=== PATIENT | male | born 1945 | race Caucasian/White ===

== ENCOUNTER → 2020-11-16 | Outpatient (CLI) | payer MEDICARE ==
--- NOTE | 2020-11-16 15:48 | XR ---
EXAMINATION TYPE: XR chest 2V DATE OF EXAM: 11/16/2020 COMPARISON: None HISTORY: 74-year-old male I50.9, heart failure, shortness of breath, dyspnea. TECHNIQUE: Frontal and lateral views FINDINGS: Heart borderline enlarged. Strandy areas of atelectasis of the lower lungs. Aorta and pulmonary vascu lature within normal limits. No consolidation or pleural effusion. IMPRESSION: Borderline heart size. Strandy bibasilar atelectasis.
--- NOTE | 2020-11-17 07:38 | ECHOF ---
Referral Reason:I50.9 heart failure R06.00 Dyspnea R01.1 MEASUREMENTS -------- HEIGHT: 175.3 cm WEIGHT: 113.4 kg BP: IVSd: 1.3 cm (0.6 - 1.1) LVIDd: 5.1 cm (3.9 - 5.3) LVPWd: 1.2 cm (0.6 - 1.1) IVSs: 1.9 cm LVIDs: 2.6 cm LVPWs: 1.7 cm LAESV Index (A-L): 29.13 ml/m Ao Diam: 4.3 cm (2.0 - 3.7) AV Cusp: 2.3 cm (1.5 - 2.6) MV E Kishore: 0.57 m/s MV DecT: 214 ms MV A Kishore: 0.94 m/s MV E/A Ratio: 0.60 RAP: 5.00 mmHg RVSP: 14.60 mmHg FINDINGS -------- Sinus rhythm. This was a technically good study. The left ventricular size is normal. There is mild concentric left ventricular hypertrophy. Overa ll left ventricular systolic function is mildly impaired with, an EF between 45 - 50 %. Basal septa l hypokinesis The right ventricle is normal in size. LA is midly dilated 29-33ml/m2. The right atrial size is normal. There is mild aortic valve sclerosis. Trace amount of aortic regurgitation. Mild mitral regurgitation is present. Mild tricuspid regurgitation present. Right ventricular systolic pressure is normal at < 35 mmHg. There is no pulmonic regurgitation present. There is no pericardial effusion. CONCLUSIONS -------- 1. The left ventricular size is normal. 2. There is mild concentric left ventricular hypertrophy. 3. Basal septal hypokinesis 4. The right ventricle is normal in size. 5. LA is midly dilated 29-33ml/m2. 6. The right atrial size is normal. 7. There is mild aortic valve sclerosis. 8. Trace amount of aortic regurgitation. 9. Mild mitral regurgitation is present. 10. Mild tricuspid regurgitation present. 11. There is no pulmonic regurgitation present. AIR DRIER: Maru Singh RDCS
== END | disposition home or self-care (01) ==
LOC: RADECHMAIN 13:47
PROVIDERS: ATTEND Family Medicine
DX: J98.11 Atelectasis (principal); R06.00 Dyspnea, unspecified; I50.9 Heart failure, unspecified; R01.1 Cardiac murmur, unspecified
CPT/HCPCS: 71046; 93005; 93306

== ENCOUNTER → 2021-01-01 | Outpatient (CLI) | payer MEDICARE ==
[~2021-01-01] MED LIST: REGADENOSON 0.4 MG/5 ML SYRINGE IV PRN
--- NOTE | 2021-01-01 16:54 | P.STRESS ---
- Stress Test Note Stress Test Results/Findings: Exam Performed: NM stress lexiscan cardiolite Exam Date: 01/01/21 Reason for Exam: GURPREET Height: 5 ft 10 in Weight: 250 kg Protocol: MAXX Stage: NA Duration of Exercise: 4 MIN Resting Heart Rate: 85 Resting Blood Pressure: 147/87 Maximum Achieved Heart Rate: 107 Maximum Achieved Blood Pressure: 147/86 85% PMHR: 123 100% PMHR: 145 METS: NA Technologist Comment: Stress Test Results/Findings: This is a 75-year-old gentleman with history of hypertension, diabetes and smoking history, being evaluated for symptoms of shortness of breath. Stress data: Baseline EKG showed sinus rhythm. There is incomplete right bundle-branch block. A standard dose of Lexiscan was infused. Blood pressure at rest is 147/87, pulse rate of 85. With infusion. Heart rate went up to maximal 107 with a blood pressure 135/82. EKGs taken during and after the infusion did not reveal any changes from baseline. Final impression: #1. Negative Lexiscan stress test #2. Report on nuclear images to be provided by the radiologist
--- NOTE | 2021-01-01 18:47 | NM ---
EXAMINATION TYPE: NM stress lexiscan cardiolite DATE OF EXAM: 01/01/2021 COMPARISON: NONE HISTORY: 75-year-old male shortness of breath, difficulty breathing TECHNIQUE: After the intravenous administration of 10.1 mCi Tc 99m Sestamibi - Cardiolite resting SP ECT images acquired 50 minutes post injection. The patient received 0.4mg Lexiscan, 24.3 mCi Tc 99m Sestamibi - Stress images obtained [address] injection FINDINGS: Review of stress and rest SPECT images demonstrates a large lateral and inferolateral wall area of de creased perfusion which accentuates stress imaging. This is corroborated on polar maps. Gated analysi s shows limited augmentation of the lateral wall with an estimated left ventricular ejection fraction of 50 %. TID there is normal at 0.87. IMPRESSION: 1. 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 The defect accentuat es on stress suggesting shreya-infarct ischemia. Further workup as clinically indicated. 2. Mildly diminished LVEF of 50%.
== END | disposition home or self-care (01) ==
LOC: RADNMMAIN 08:32
PROVIDERS: ATTEND Family Medicine
DX: R06.09 Other forms of dyspnea (principal); R07.89 Other chest pain
CPT/HCPCS: 93017; 78452; A9500; J2785

== ENCOUNTER 2021-01-26 08:30 | Day surgery (SDC) | payer MEDICARE ==
[2021-01-22 14:53] VITALS: BMI 35.9
[~2021-01-26 08:30] MED LIST changes: +ALPRAZolam 0.25 MG TAB PO PRN; +ALPRAZolam 0.5 MG TAB PO PRN; +ASPIRIN 325 MG TAB PO STA; +ATORVASTATIN 80 MG TAB PO STA; +HEPARIN SODIUM,PORCINE 10,000 UNIT in SODIUM CHLORIDE 0.9% 1,000 ML IRRIGATION PRN; +HEPARIN SODIUM,PORCINE 2,500 UNIT in SODIUM CHLORIDE 0.9% 250 ML IRRIGATION PRN; +NITROGLYCERIN SL TABS 0.4 MG TAB SUBLINGUAL PRN; -REGADENOSON 0.4 MG/5 ML SYRINGE IV PRN; +SODIUM CHLORIDE 0.9% 1,000 ML in EMPTY BAG 1 BAG IV SCH
[2021-01-26 09:18] LABS: Glucose,Whole Blood 166 mg/dL (75-99)
[2021-01-26 09:23] VITALS: RESP 18; TEMP 98.1
[2021-01-26] MEDS ORDERED: VERAPAMIL 2.5 MG/ML 2 ML AMP ONE (09:57)
[2021-01-26] MEDS ORDERED: LIDOCAINE 1% INJ 10MG/ML (20 ML MDV) ONE (09:57)
[2021-01-26] MEDS ORDERED: HEPARIN SODIUM 1,000 UN/ML (10ML VL) ONE (10:16)
[2021-01-26] MEDS ORDERED: fentaNYL (PF) 50 MCG/ML 2 ML AMP ONE (10:16)
[2021-01-26 10:30] LABS: Basophils % (A) 1 %; Eosinophils # (A) 0.2 k/uL (0-0.7); Eosinophils % (A) 3 %; HCT 43.2 % (39.0-53.0); HGB 14.4 gm/dL (13.0-17.5); Lymphocytes # (A) 1.4 k/uL (1.0-4.8); Lymphocytes % (A) 18 %; MCH 32.7 pg (25.0-35.0); MCHC 33.3 g/dL (31.0-37.0); Mean Platelet Volume 8.8; Monocytes # (A) 0.5 k/uL (0-1.0); Monocytes % (A) 6 %; Neutrophils # (A) 5.5 k/uL (1.3-7.7); Neutrophils % (A) 71 %; Platelet Count 235 k/uL (150-450); RBC 4.41 m/uL (4.30-5.90); RDW 12.9 % (11.5-15.5); WBC 7.7 k/uL (3.8-10.6)
[2021-01-26] MEDS ORDERED: fentaNYL (PF) 50 MCG/ML 2 ML AMP IVP ONE (10:47)
[2021-01-26] MEDS ORDERED: MIDAZOLAM 2 MG/2 ML VIAL IVP ONE (10:47)
[2021-01-26] MEDS ORDERED: LIDOCAINE 1% INJ 10MG/ML (20 ML MDV) SQ ONE (10:48)
[2021-01-26] MEDS ORDERED: VERAPAMIL SYRINGE (5 MG/10 ML) INTRAARTER ONE (10:50)
[2021-01-26] MEDS: HEPARIN SODIUM 1,000 UN/ML (10ML VL) IV ONE ×4 (10:51→11:38)
[2021-01-26 10:58] LABS: African American GFR (CKD) >90 (>60 ml/min/1.73 sqM); Blood Urea Nitrogen 12 mg/dL (9-20); Non-African American GFR(CKD) 84 (>60 ml/min/1.73 sqM)
[2021-01-26] MEDS ORDERED: CLOPIDOGREL 75 MG TAB ONE (11:00)
[2021-01-26] MEDS ORDERED: CLOPIDOGREL 75 MG TAB PO ONE (11:08)
[2021-01-26] MEDS ORDERED: IOPAMIDOL-370 125ML BTL INJ ONE (11:21)
[2021-01-26] MEDS: NITROGLYCERIN 1000MCG/10ML SYRINGE INTRACORON ONE ×2 (11:22→11:30)
[2021-01-26] MEDS ORDERED: IOPAMIDOL-370 100ML BTL INJ ONE (11:36)
[2021-01-26] MEDS ORDERED: NITROGLYCERIN SL TABS 0.4 MG TAB SUBLINGUAL PRN (12:48)
[2021-01-26] MEDS ORDERED: RX INFO: IV CONTRAST WAS GIVEN 1 EACH MISC MISCELLANE PRN (12:49)
[2021-01-26] MEDS ORDERED: ATROPINE SULFATE 0.1 MG/ML 10ML SYRINGE IV PRN (12:49)
[2021-01-26] MEDS ORDERED: MAG HYDROX/AL HYDROX/SIMETH 30 ML CUP PO PRN (12:49)
[2021-01-26] MEDS ORDERED: ZOLPIDEM 5 MG TAB PO PRN (12:49)
[2021-01-26] MEDS ORDERED: SODIUM CHLORIDE 0.9% 1,000 ML IV SCH (13:00)
[2021-01-26 14:49] VITALS: BP 140/60
[2021-01-26 15:32] VITALS: PULSE 68
[2021-01-26 15:34] LABS: African American GFR (CKD) >90 (>60 ml/min/1.73 sqM); Non-African American GFR(CKD) 82 (>60 ml/min/1.73 sqM)
--- NOTE | 2021-01-26 18:31 | P.PRCINT ---
Percutaneous Coronary Int. - Percutaneous Coronary Intervention Percutaneous Coronary Intervention: PROCEDURES PERFORMED: Left heart catheterization, bilateral coronary angiography, PTCA of OM1 with 2.5 x 12mm, PCI of mid circumflex with a 4.0 x 15mm Xience INDICATION: Abnormal stress test HISTORY: Patient is a pleasant 75 year old male with history of DM 2, tobacco abuse, obesity and GE who has been having increased GE over the last 3-6 months. He was noted to have mildly decreased EF 45-50% with inferiorlateral fixed perfusion defect with shreya-infarct ischemia on stress test. He was attempted on Toprol and Nitro without improvement in his GE and therefore LHC with possible PCI was recommended. CONSENT:I have discussed the risks, benefits and alternative therapies for the above-mentioned procedure and for both sedation/analgesia as well as necessary blood product administration, if indicated, as they pertain to this patient. The patient has indicated understanding and acceptance of the risks and procedures discussed. PROCEDURE: After the risks, benefits and alternatives of the above mentioned procedure explained in detail with the patient, informed consent was obtained. Patient was taken to the catheterization lab and prepped and draped in usual fashion. 1% lidocaine was used to anesthetize the right radial artery. A 6- Colombian sheath was placed in the right radial artery using modified Seldinger technique. Left coronary angiography was performed with a 5-Colombian JL 3.5 catheter and right coronary angiography was performed with a 5-Colombian JR5 catheter in various views. A 5-Colombian FR5 catheter was inserted into the left ventricle and pressure measurements were obtained. The decision was made to performed PCI of the circumflex. Heparin was given for an ACT > 250. A 6Fr CLS 4.0 guide was used to engage the left main. A 0.014 BMW wire was placed in the distal circumflex and a second 0.014 BMW wire was advanced into the OM1. Given some involvement with the OM branch the decision was made to perform balloon angioplasty of the OM branch. Balloon angioplasty was performed of the OM1 branch at the bifurcation with a 2.5 x 12mm balloon. Next predilation of the circumflex was performed with a 3.5 x 12mm balloon. Next a 4.0 x 15mm Xience BRIDGET was deployed with "jailing" of the OM1 however did not effect any stenosis of the OM and with WALKER 3 flow. Pre intervention there was 95% stenosis and WALKER 2 flow and post intervention there was WALKER 3 flow with 0% stenosis. The right radial sheath was removed and a TR band was placed with hemostasis achieved. The patient tolerated the procedure well. Patient was transported back to the post catheterization holding area in stable condition. Conscious Sedation: Patient was monitored under the direct supervision of vision of myself for conscious sedation using Versed and fentanyl for a total duration of 47 minutes HEMODYNAMICS: Aortic: 142/77 LV: 131/13, LVEDP 14 SELECTIVE CORONARY ARTERIOGRAPHY: LEFT MAIN: The left main is a large caliber vessel which bifurcates into the LAD and circumflex. There is no significant stenosis. LEFT ANTERIOR DESCENDING CORONARY ARTERY: LAD is a large caliber vessel which wraps around the apex. There are mild luminal irregularities up to 10% stenosis. LEFT CIRCUMFLEX CORONARY ARTERY: Left circumflex is a large caliber vessel which gives off the PDA and is the dominant vessel. There is a mid circumflex 95% stenosis at the level of an OM1. RIGHT CORONARY ARTERY: The right coronary artery is a small caliber vessel which gives off a small caliber marginal branch. There are small right to left collaterals. FINAL IMPRESSION: 1. CAD as described above with PTCA OM1 and PCI of mid circumflex with a 4.0 x 15mm Xience 2. Normal left sided filling pressure PLAN: 1. Aggressive risk factor modification per most recent ACC/AHA guidelines. 2. Continue dual antiplatelets for 12 months.
[2021-01-26] MEDS ORDERED: ATORVASTATIN 40 MG TAB PO SCH (21:00)
[2021-01-27] MEDS ORDERED: PANTOPRAZOLE 40 MG TABLET PO SCH (07:30)
[2021-01-27] MEDS ORDERED: INSULIN DETEMIR 100 UNIT/ML SQ SCH (09:00)
[2021-01-27] MEDS ORDERED: CLOPIDOGREL 75 MG TAB PO SCH (09:00)
[2021-01-27] MEDS ORDERED: LINAGLIPTIN 5 MG TABLET PO SCH (09:00)
[2021-01-27] MEDS ORDERED: ASPIRIN 81 MG PO SCH (09:00)
[2021-01-27] MEDS ORDERED: METOPROLOL SUCCINATE (ER) 25 MG TAB.ER.24H PO SCH (09:00)
[2021-01-27] MEDS ORDERED: PIOGLITAZONE 30 MG TAB PO SCH (09:00)
== END 2021-01-26 15:32 | disposition home or self-care (01) ==
LOC: CATHCVL 08:30
PROVIDERS: ATTEND Internal Medicine
DX: R94.39 Abnormal result of other cardiovascular function study (principal); Z20.822 Contact with and (suspected) exposure to COVID-19; E11.9 Type 2 diabetes mellitus without complications; F17.200 Nicotine dependence, unspecified, uncomplicated; E66.9 Obesity, unspecified
CPT/HCPCS: 93458; 92921; 82565; 84520; 85025; 87635; C9600; C1769; C1887; C1894; C1725 ×2; C1874; J2250; J2001; J3010; J1644; Q9967 ×2